=== PATIENT | male | born 1955 | race Caucasian/White ===

== ENCOUNTER 2024-12-10 04:04 | Inpatient (IN) | payer MEDICARE, BC ==
[~2024-12-10] VITALS: Ht 167.6 cm; Wt 70.8 kg
[2024-12-10] MEDS ORDERED: EZET10TA15 PO (04:12)
[2024-12-10] MEDS ORDERED: ROSU5TAB PO (04:12)
[2024-12-10] MEDS ORDERED: DOXA1TAB2 PO (04:12)
[2024-12-10] MEDS ORDERED: METOCLOPRAMIDE HCL 10 MG/2 ML VIAL ONE (04:32)
[2024-12-10] MEDS ORDERED: diphenhydrAMINE 50 MG/1 ML VIAL ONE (04:32)
[2024-12-10 04:34] LABS: PLATELET COUNT (AUTO) 140 K/uL (152-348); RED BLOOD CELL COUNT(AUTO) 4.40 MIL/uL (4.06-5.63); RED CELL DISTRIBUTION WIDTH 12.9 % (12.1-16.2); WHITE BLOOD COUNT (AUTO) 5.8 K/uL (3.6-10.2)
[2024-12-10] MEDS: diphenhydrAMINE 50 MG/1 ML VIAL IV ONE (04:39)
[2024-12-10] MEDS: METOCLOPRAMIDE HCL 10 MG/2 ML VIAL IV ONE (04:39)
[2024-12-10] MEDS ORDERED: FAMOTIDINE. 20 MG/2 ML VIAL IV ONE (04:40)
[2024-12-10] MEDS: FAMOTIDINE. 20 MG/2 ML VIAL IV ONE (04:41)
[2024-12-10 04:42] LABS: CREATININE 0.8 mg/dL (0.6-1.3); SODIUM SERUM 142 mmol/L (136-145); UREA NITROGEN, BLOOD 21 mg/dL (7-18)
[2024-12-10 04:47] LABS: ASPARTATE AMINOTRANSFERASE 25 U/L (15-37); TOTAL PROTEIN, SERUM 5.8 g/dL (6.4-8.2)
[2024-12-10] MEDS: IV NS 1000 ML 1,000 ML IV ONE (06:11)
[2024-12-10] MEDS ORDERED: ONDANSETRON 4 MG/2 ML VIAL IV PRN (12:45)
[2024-12-10] MEDS ORDERED: MORPHINE SULFATE 2 MG/1 ML DISP.SYRIN IV PRN (12:45)
[2024-12-10] MEDS ORDERED: MAGNESIUM HYDROXIDE 30 ML LIQUID UDC PO PRN (12:45)
[2024-12-10] MEDS ORDERED: REMEDY ESSENTIAL ZINC PASTE 113 GM TP PRN (12:45)
[2024-12-10] MEDS ORDERED: NITROGLYCERIN 0.4 MG/TAB BOTTLE SL PRN (12:45)
[2024-12-10] MEDS ORDERED: ACETAMINOPHEN 325 MG TABLET PO PRN (12:45)
[2024-12-10] MEDS ORDERED: DOXA4TAB3 PO (12:51)
[2024-12-10] MEDS ORDERED: BIMA2.5D6 EACHEYE (12:51)
[2024-12-10] MEDS ORDERED: TADA20TA43 PO (12:52)
[2024-12-10] MEDS ORDERED: MULT-225 PO (12:53)
[2024-12-10] MEDS ORDERED: ROSU10TA29 PO (12:53)
[2024-12-10] MEDS ORDERED: CHOL500062 PO (12:54)
[2024-12-10] MEDS ORDERED: VITA40TA PO (12:54)
[2024-12-10] MEDS: ASPIRIN EC 81 MG TABLET.DR PO SCH (12:57)
[2024-12-10] MEDS ORDERED: ASPIRIN EC 81 MG TABLET.DR PO ONE (12:58)
[2024-12-10 14:30] VITALS: BP 116/70
[2024-12-10 21:36] VITALS: BP 115/71; TEMP 97.2; O2SAT 95
[2024-12-10 23:40] VITALS: BP 114/66; TEMP 97.6; O2SAT 97
[2024-12-11 05:30] VITALS: BP 128/78; TEMP 97.8; O2SAT 98
[2024-12-11 07:18] LABS: PLATELET COUNT (AUTO) 158 K/uL (152-348); RED BLOOD CELL COUNT(AUTO) 4.78 MIL/uL (4.06-5.63); RED CELL DISTRIBUTION WIDTH 12.8 % (12.1-16.2); WHITE BLOOD COUNT (AUTO) 5.4 K/uL (3.6-10.2)
[2024-12-11 07:28] LABS: CREATININE 0.8 mg/dL (0.6-1.3); SODIUM SERUM 145.0 mmol/L (136-145); UREA NITROGEN, BLOOD 13.0 mg/dL (7-18)
[2024-12-11 07:57] VITALS: BP 116/70; TEMP 98.4; O2SAT 97
[2024-12-11] MEDS ORDERED: ASPI-618 PO (09:19)
== END 2024-12-11 10:20 | disposition home or self-care (01) | DRG 392 ==
LOC: ER 04:16 → TELE3 20:37
DX: K21.9 Gastro-esophageal reflux disease without esophagitis (principal); E78.5 Hyperlipidemia, unspecified; R53.83 Other fatigue; N40.0 Benign prostatic hyperplasia without lower urinary tract symptoms; R79.89 Other specified abnormal findings of blood chemistry; Z88.5 Allergy status to narcotic agent; Z88.1 Allergy status to other antibiotic agents; Z79.899 Other long term (current) drug therapy
CPT/HCPCS: 36415; 71045; 83735; 84100; 84484; 85025; 85730; 93307; A4606; A4663; G0378; J1200; J1308; J2765; J7040